=== PATIENT | male | born 1940 | race Caucasian/White ===

== ENCOUNTER 2017-05-14 00:26 | Inpatient (IN) | payer MEDICARE, OTHER ==
[2017-05-14] MEDS ORDERED: Amiodarone HCl 150 MG, Admixture Fee 1 EACH in Dextrose 5% in Water 100 ML IVPB SCH ×3 (00:45)
[2017-05-14] MEDS ORDERED: Norepinephrine 8 MG/0.9% NS 250 ML ONE (01:00)
[2017-05-14 01:01] LABS: Oxyhemoglobin 97.2 % (94.0-97.0); Sodium 144 mmol/L (135-148)
[2017-05-14 01:05] LABS: Mechanical Tidal Volume 500 ml; Vent YES
[2017-05-14 01:06] LABS: Mode SIMV; Pressure Support 10 cmH2O
[2017-05-14 01:07] LABS: Prothrombin Time 19.7 SEC (12.0-14.7)
[2017-05-14 01:12] LABS: ALT (SGPT) 205 U/L (8-55); AST (SGOT) 378 U/L (5-34); Alkaline Phosphatase 122 U/L (40-150); Anion Gap 29 mmol/L (10-20); BUN (Urea Nitrogen) 19 mg/dL (8.4-25.7); Bilirubin, Total 0.7 mg/dL (0.2-1.2); CK (CPK) 226 U/L (30-200); Calc. Creatinine Clearance 0 mL/min (70-130); Calcium 9.3 mg/dL (7.8-10.44); Carbon Dioxide 14 mmol/L (23-31); Chloride 104 mmol/L (98-107); Estimated GFR-MDRD 47; Globulin 3.1 g/dL (2.4-3.5); Lipase 78 U/L (8-78); Protein, Total 6.3 g/dL (5.8-8.1)
[2017-05-14 01:15] LABS: Troponin I 0.026 ng/mL (< 0.028)
[2017-05-14 01:16] LABS: Hematocrit 36.6 % (42.0-52.0); Red Blood Cell (RBC) Count 3.61 mill/uL (4.70-6.10); White Blood Cell (WBC) Count 9.1 thou/uL (4.8-10.8)
[2017-05-14] MEDS ORDERED: Aspirin 300 MG Suppository ONE (01:24)
[2017-05-14 01:29] LABS: Anisocytosis SLIGHT = 6-15 cells (100X) (0-5/hpf); Band 1 % (5-11); Metamyelocyte 1 % (0-0); Myelocyte 1 % (0-0); Neutrophil 18 % (42-75)
[2017-05-14] MEDS ORDERED: Sodium Bicarbonate 75 MEQ in Dextrose 5% in Water 500 ML IV SCH ×4 (01:30→03:00)
[2017-05-14] MEDS ORDERED: Acetaminophen 650 MG Suppository PR PRN (02:45)
[2017-05-14] MEDS ORDERED: Insulin Regular 300 UNITS/3 ML VIAL SC PRN (02:45)
[2017-05-14] MEDS ORDERED: Phenylephrine 10 MG/NS 250 ML 250 ML IVPB PRN (02:45)
[2017-05-14] MEDS ORDERED: Norepinephrine 8 MG/0.9% NS 250 ML IVPB PRN (02:45)
[2017-05-14] MEDS ORDERED: Bisacodyl 10 MG SUPP PR PRN (02:45)
[2017-05-14] MEDS ORDERED: Bisacodyl 5 MG TAB PO PRN (02:45)
[2017-05-14] MEDS ORDERED: Enoxaparin Sodium 100 MG/ML SYRINGE ONE (02:49)
[2017-05-14] MEDS ORDERED: Dextrose 5% in Water 1,000 ML IV PRN (03:02)
[2017-05-14] MEDS ORDERED: Dextrose 50% Abboject 50 ML SYRINGE IVP PRN (03:02)
--- NOTE | 2017-05-14 03:39 | HP ---
PRIMARY CARE PROVIDER: None known. CHIEF COMPLAINT: Unresponsiveness. HISTORY OF PRESENT ILLNESS: Mr. Curry is a 76-year-old gentleman who was seen at [facility] on 05/14/2017. The patient is currently intubated, mechanically ventilated, unable to provide any history. History was obtained from discussion with the emergency room physician as well as review of medical records. He was found in his hotel shower by his family. He reportedly has significant cardiac history. He h ad CPR at the hotel. He was brought to the emergency room and continued to have resuscitation and re ceived atropine, epinephrine, calcium, and bicarbonate. He was also intubated. His family member who is also a local primary care physician, start by to inform the emergency room s taff said the patient is DNR. By then, patient was intubated and he had a femoral line in place. Af ter further discussions, decision was made to continue current treatment, but no CPR in the future. Family is okay with vasopressors, intubation, and electric shocks if necessary. REVIEW OF SYSTEMS: Could not be completed because of patient's current condition. PAST MEDICAL HISTORY: Significant for diabetes mellitus, dyslipidemia, hypertension, and coronary ar alva disease. PAST SURGICAL HISTORY: PCI with stent and hip replacement. SOCIAL HISTORY: He lives at home with family. No further history available. FAMILY HISTORY: Not available. ALLERGIES: IODINE and IODINE CONTAINING PRODUCTS. CURRENT MEDICATION: Current medication list is not available. PHYSICAL EXAMINATION: GENERAL: Mr. Curry is currently intubated, mechanically ventilated. VITAL SIGNS: Pulse is 83. His breathing at rate of 14 and saturating 100% on the ventilator. He is afebrile. Blood pressure is 96/66. EYES: No scleral icterus. No conjunctival pallor. Pupils are dilated and nonreactive to light. ENT: Endotracheal tube is present. NECK: No cervical lymphadenopathy. RESPIRATORY: Accessory muscles of breathing are not active. Chest wall movements are symmetric bila terally. LUNGS: Clear to auscultation without wheeze, rhonchi, or crepitations. CARDIOVASCULAR: S1 and S2 are heard, regular. Peripheral pulses palpable. He has a right femoral ce ntral line. ABDOMEN: Distended, nontender, bowel sounds heard. No hepatomegaly, no splenomegaly. MUSCULOSKELETAL: Unable to assess secondary to the patient's noncooperation. NEUROLOGIC: Pupils as described above. No facial droop. Plantar reflexes equivocal bilaterally. SKIN: No rashes or subcutaneous nodules. LYMPHATIC: No cervical lymphadenopathy. PSYCHIATRIC: Unable to assess mood, affect, and orientation to person, place, or time. LABORATORY DATA: Mr. Curry's labs and investigations were reviewed. I reviewed his electrocardiogra m, which shows atrial fibrillation with rapid ventricular response. He has ST depressions in the lat eral leads. I also reviewed his chest x-ray, which does not show any pulmonary infiltrates. He has an endotracheal tube in place. Laboratory investigation show normal white count, macrocytic anemia w ith hemoglobin of 11.6, normal platelet count, INR 1.6, elevated D-dimer of 20, normal sodium, normal potassium, elevated creatinine of 1.45, elevated AST of 378, elevated ALT of 205, normal alkaline ph osphatase and normal total bilirubin, elevated CK of 226, normal troponin I and normal lipase. Arter ial blood gases show pH of 7.03, pCO2 of 56.1 and pO2 of 187.9. ASSESSMENT AND PLAN: Mr. Curry is unclear 76-year-old gentleman who was seen at [facility] on 05/14/2017. His problem list includes: 1. Cardiac arrest: Mr. Curry had cardiac arrest at his hotel. Etiology is unclear, could be relate d to coronary artery disease. Cardiology Service has already been consulted and after discussion wit h family, it was agreed to not pursue any aggressive measures at this time. He will be admitted to [facility] Unit for further management. He is currently on a cooling protocol. His case was d iscussed by the emergency room physician with the [employer] consultant. 2. Acute respiratory failure secondary to cardiac arrest. He is currently intubated and mechanicall y ventilated. 3. Diabetes mellitus type 2. We will start patient on Accu-Cheks and insulin sliding scale. 4. Hypertension: Monitor vital signs, titrate antihypertensives as needed. P.r.n. IV hydralazine. 5. The patient is currently awaiting CT scan of the brain without contrast. He also has an elevated D-dimer. He has received Lovenox as ordered by the emergency room physician. We will await VQ scan given his IODINE allergy. LEVEL OF RISK: High. LEVEL OF COMPLEXITY: High.
--- NOTE | 2017-05-14 04:15 | DIS ---
DATE OF ADMISSION: 05/14/2017 DATE OF : 05/14/2017 Please refer to my history and physical note from 05/14/2017 regarding the circumstances of this hosp ital admission. Shortly after reaching the critical care unit, Mr. Curry developed asystole. Pupils were fixed and dilated, there were no corneal reflexes. Family's request was that CPR not be perfor med. He was pronounced at 3:50 a.m. on 05/14/2017. CAUSE OF : 1. Cardiac arrest. 2. Anoxic brain injury.
--- NOTE | 2017-05-14 07:55 | CT ---
PRELIMINARY REPORT/[facility]/EMERGENCY AFTER HOURS PROCEDURE: Addendum created by Blair Barone MD on 05/14/2017 3:46 AM Central Time ([place] & [place]) THIS REPORT CONTAINS FINDINGS THAT MAY BE CRITICAL TO PATIENT CARE. The findings were verbally commun icated via telephone conference with Dr. Angulo at 3:46 AM CARE DIRECTOR on 05/14/2017. The findings were acknow ledged and understood. Initial Report created on 05/14/2017 3:35 AM Central Time ([place] & [place]) EXAM: CT Head Without Intravenous Contrast EXAM DATE/TIME: 05/14/2017 3:06 AM CLINICAL HISTORY: 76 years old, male; Signs and symptoms; Other: Unresponsive; Patient HX: Er 10; M 76 presents to ed w ith cardiac arrest. Pt was found unresponsive in hotel shower by family, was cyanotic but warm. Has r eceived 3 epi and 1 round of bicarb. Bs was 230 on arrival. Pt has extensive cardiac HX per family. E ms began cpr on scene. TECHNIQUE: Axial computed tomography images of the head/brain without intravenous contrast. COMPARISON: No relevant prior studies available. FINDINGS: Brain: Diffuse loss of normal williamson-white matter differentiation. No hemorrhage. Ventricles: Unremarkable. No ventriculomegaly. Bones/joints: Unremarkable. No acute fracture. Soft tissues: Unremarkable. Sinuses: Mild right maxillary and sphenoid sinus fluid/soft tissue. Mastoid air cells: Unremarkable as visualized. No mastoid effusion. IMPRESSION: 1. Diffuse loss of normal williamson-white matter differentiation. --Due to patients history, diffuse anoxi c injury is consideration. 2. Mild right maxillary and sphenoid sinus fluid/soft tissue. Thank you for allowing us to participate in the care of your patient. Dictated and Authenticated by: Blair Barone MD 05/14/2017 3:35 AM Central Time ([place] & [place]) FINAL REPORT CT HEAD: Multiple axial tomograms are obtained through the head without contrast. There is diffuse los of the normal williamson-white matter differentiation. No focal hemorrhage or mass. I am in agreement with the preliminary report. POS: OFF
--- NOTE | 2017-05-14 08:30 | RAD ---
PORTABLE SUPINE CHEST: HISTORY: Dyspnea. Cardiac arrest. Post-intubation. FINDINGS: ET tube has been placed and tip is above nabil. An NG tube is in place with tip not visualized. There is evidence of a hazy infiltrate in the right upper lobe. The left hemidiaphragm is obscured a nd I cannot exclude left basilar atelectasis or consolidation. Vascular markings normal. IMPRESSION: 1. ET tube appears adequately positioned. 2. Hazy infiltrate in the right upper lobe. Question consolidation and/or atelectasis in the left l ower lobe. POS: OFF
[2017-05-14] MEDS ORDERED: Adenosine 6 MG/2 ML VIAL ONE (11:08)
[2017-05-14] MEDS ORDERED: EPINEPHrine 1 MG/10 ML Abboject SYRINGE ONE (11:08)
[2017-05-14] MEDS ORDERED: Atropine Sulfate 1 mg/10 ml Syringe ONE (11:08)
[2017-05-14] MEDS ORDERED: Sodium Bicarb 50 MEQ/50 ML Abboject 8.4% SYRINGE ONE (11:08)
--- NOTE | 2017-05-14 11:45 | CON ---
DATE OF CONSULTATION: 05/14/2017 REASON FOR CONSULTATION: Hospital arrest. REFERRING PROVIDER: Didier Angulo M.D. HISTORY OF PRESENT ILLNESS: Mr. Curry is an unfortunate 76-year-old gentleman with previous history of atrial fibrillation, recently had unwitnessed passing out spells. His and he were visiting f rom the [facility]. They were staying in a hotel. When she checked on him, he passed out. He was unresponsive. No pulse was noted. There was a vague history of possible CPR performed prior to EMS arriving. The states EMS did arrive within 10 to 15 minutes of the phone call. It appears CPR was performed, it was unlikely to be significantly effective. He underwent the CPR in the field. He was brought in and was intubated. After he was intubated with CPR ensued, return of spontaneous circulation was noted. After the family arrived, Mr. Curry was a DNR. PAST MEDICAL HISTORY: CAD, status post stent placement, atrial fibrillation on mexiletine, diabetes mellitus, hyperlipidemia, hypertension. SOCIAL HISTORY: No current tobacco or alcohol use. He has a very supportive . ALLERGIES: IODINE. HOME MEDICATIONS: Mexiletine and others, full list not available. REVIEW OF SYSTEMS: A 10-point review of systems cannot be performed. PHYSICAL EXAMINATION: VITAL SIGNS: Blood pressure 59/40, pulse 78, respirations 20. GENERAL: He is currently intubated in a Trendelenburg. He is also on Levophed and sodium bicarbonat e drip. NEUROLOGIC: The patient is alert and oriented times 3 with no focal neurologic deficits. HEENT: Sclerae without icterus. Mouth has moist mucous membranes with normal pallor. NECK: No JVD. Carotid upstroke brisk. No bruits bilaterally. LUNGS: Clear to auscultation with unlabored respirations. BACK: No scoliosis or kyphosis. CARDIAC: Regular rate and rhythm with normal S1 and S2. No S3 or S4 noted. No significant rubs, mu rmurs, thrills, or gallops noted throughout the precordium. PMI is not displaced. There is no shawna ternal heave. ABDOMEN: Soft, nontender, nondistended. No peritoneal signs present. No hepatosplenomegaly. No abnormal striae. EXTREMITIES: 2+ femoral and 2+ dorsalis pedis pulses. No cyanosis, clubbing, or edema. SKIN: No gross abnormalities. LABORATORY DATA: Hemoglobin 11.6, creatinine 1.45 with a GFR of 47. AST and ALT of 375 and 205 resp ectively. Peak troponin 0.026. EKG, normal sinus rhythm. IMPRESSION: 1. Out of hospital arrest. 2. Coronary artery disease. 3. Atrial fibrillation. RECOMMENDATIONS: Etiology to his current demise is unknown. Brain CT scan was performed with the results pending. CT scan of his chest could not be performed due to contrast reaction. PE is certainly a differential. We will consider Lovenox, although he did receive CPR, which may increase his bleeding risk. He is also markedly hypertensive despite pressor agents. There is a relative contraindication of hypotherm ic protocol. We will proceed with hypothermic protocol given this is not an absolute contraindicatio n. If he continues to be hypotensive, we will then recommend stopping the protocol. At this point, we did discuss with the family his prognosis is poor given his current situation. They are not inter ested in proceeding with any further pressor agents for titrating pressures up any further for blood pressure support. I did spend 50 minutes of critical care time at Mr. Curry's bedside and discussed the case with Dr. Beau baca.
--- NOTE | 2017-05-18 13:54 | EKG ---
Test Reason : Blood Pressure : / mmHG Vent. Rate : 149 BPM Atrial Rate : 147 BPM P-R Int : 000 ms QRS Dur : 116 ms QT Int : 334 ms P-R-T Axes : 000 002 017 degrees QTc Int : 526 ms Atrial fibrillation with rapid ventricular response Inferior infarct , age undetermined Abnormal ECG Confirmed by GEOVANNY BENAVIDEZ, JAYESH ([id number]), advertising editor SUSAN CLAYTON ([id number]) on 05/18/2017 1:52:48 PM Referred By: Confirmed By:JAYESH SMALL MD
== END 2017-05-14 03:50 | disposition expired | DRG 296 ==
LOC: ERS 00:26 → CCU 02:00
PROVIDERS: ADMIT Internal Medicine; ATTEND Internal Medicine
PROC: 5A12012 Performance of Cardiac Output, Single, Manual (ICD-10-PCS; principal; 2017-05-14)
PROC: 06HM33Z Insertion of Infusion Device into Right Femoral Vein, Percutaneous Approach (ICD-10-PCS; 2017-05-14)
PROC: 5A1935Z Respiratory Ventilation, Less than 24 Consecutive Hours (ICD-10-PCS; 2017-05-14)
DX: I46.9 Cardiac arrest, cause unspecified (principal); J96.01 Acute respiratory failure with hypoxia; R40.2112 Coma scale, eyes open, never, at arrival to emergency department; R40.2312 Coma scale, best motor response, none, at arrival to emergency department; R40.2212 Coma scale, best verbal response, none, at arrival to emergency department; G93.1 Anoxic brain damage, not elsewhere classified; E11.9 Type 2 diabetes mellitus without complications; Z66 Do not resuscitate; I25.10 Atherosclerotic heart disease of native coronary artery without angina pectoris; Z95.5 Presence of coronary angioplasty implant and graft; Z91.041 Radiographic dye allergy status; I48.91 Unspecified atrial fibrillation; I10 Essential (primary) hypertension; R79.1 Abnormal coagulation profile; Z79.02 Long term (current) use of antithrombotics/antiplatelets
CPT/HCPCS: 36416; 36556; 51702; 70450; 71010; 80053; 82553; 82805; 83690; 83880; 84484; 85025; 85379; 85610; 85730; 92950; 93005; 96365; 96366; 96368; 96372; 96374; 96375; 96376; 99292; J0153; J0171; J0282; J0461; J1650; J7070